=== PATIENT | female | born 1965 | race Caucasian/White ===

== ENCOUNTER 2017-07-28 13:45 | Outpatient (CLI) | payer OTHER ==
[2017-07-28 17:48] LABS: BILIRUBIN,URINE NEGATIVE (NEGATIVE); GLUCOSE, URINE (UA) NEGATIVE (NEGATIVE); KETONES,URINE (UA) NEGATIVE (NEGATIVE); LEUKOCYTE ESTERASE, URINE SMALL (NEGATIVE); NITRITE,URINE NEGATIVE (NEGATIVE); OCCULT BLOOD,URINE LARGE (NEGATIVE); PH,URINE 5.5 PH (5.0-7.5); PROTEIN,URINE 100 mg/dL (NEGATIVE); UROBILINOGEN,URINE 0.2 (NORMAL) E.U./dL (NORMAL)
[2017-07-28 17:49] LABS: CLARITY,URINE HAZY (CLEAR)
[2017-07-28 17:55] LABS: RBC,URINE TNTC /HPF (0-5); SQUAMOUS EPITHELIAL CELL,UR NONE SEEN (<= Few)
[2017-07-28 17:56] LABS: BACTERIA,URINE Few /HPF (None Seen)
== END 2017-07-28 13:46 | disposition home or self-care (01) ==
LOC: LAB.F 13:45
PROVIDERS: ATTEND Naturopath
DX: R30.9 Painful micturition, unspecified (principal)
CPT/HCPCS: 81001; 81003; 87077; 87086

== ENCOUNTER → 2018-02-21 | Outpatient (CLI) | payer OTHER ==
[2018-02-21 20:40] LABS: EOSINOPHILS % (AUTO) 0.9 %; HGB - HEMOGLOBIN 13.9 g/dL (12.0-16.0); LYMPHOCYTES # (AUTO) 1.3 10^3/uL (1.5-3.5); LYMPHOCYTES % (AUTO) 27.5 %; MEAN CORPUSCULAR HEMOGLOBIN 31.3 pg (27.0-31.0); MEAN CORPUSCULAR HGB CONC 34.1 g/dL (32.0-36.0); MEAN CORPUSCULAR VOLUME 91.7 fL (81.0-99.0); MEAN PLATELET VOLUME 8.9 fL (7.9-10.8); MONOCYTES # (AUTO) 0.3 10^3/uL (0.0-1.0); MONOCYTES % (AUTO) 5.7 %; NEUTROPHILS # (AUTO) 3.1 10^3/uL (1.5-6.6); NEUTROPHILS % (AUTO) 64.9 %; PLT - PLATELET COUNT 266 10^3/uL (130-450); RED BLOOD COUNT 4.44 10^6/uL (4.20-5.40); RED CELL DISTRIBUTION WIDTH 12.9 % (12.0-15.0); WHITE BLOOD COUNT 4.8 x10^3/uL (4.8-10.8)
[2018-02-21 21:21] LABS: FREE T4 (FREE THYROXINE) 0.86 ng/dL (0.58-1.64); THYROID STIMULATING HORMONE 3.05 uIU/mL (0.34-5.60)
[2018-02-21 21:23] LABS: HB2 TOTAL 14.5 g/dL; HEMOGLOBIN A1C 0.49 g/dL; HEMOGLOBIN A1C % 5.2 % (4.6-6.2)
[2018-02-21 21:24] LABS: FERRITIN 70.4 ng/mL (11.0-306.8)
[2018-02-21 21:32] LABS: % IRON SATURATION 38 % (20-50); ALBUMIN 4.1 g/dL (3.2-5.5); ALBUMIN/GLOBULIN RATIO 1.4 (1.0-2.2); ALKALINE PHOSPHATASE 61 IU/L (42-121); ALT ALANINE AMINOTRANSFERASE 25 IU/L (10-60); AST ASPARTATE AMINOTRANSFERASE 26 IU/L (10-42); BILIRUBIN,TOTAL 0.8 mg/dL (0.2-1.0); BUN - BLOOD UREA NITROGEN 19 mg/dL (6-20); CALCIUM 9.2 mg/dL (8.5-10.3); CARBON DIOXIDE - CO2 30 mmol/L (21-32); CHLORIDE 104 mmol/L (101-111); CHOL/HDL RATIO 2.2 (<4.4); CHOLESTEROL 158 mg/dL; CREATININE 0.6 mg/dL (0.4-1.0); CRP HIGH SENSITIVITY 1.3 mg/L; GFR - MDRD 104 (>89); GLUCOSE 86 mg/dL (70-100); HDL CHOLESTEROL 71 mg/dL; IRON 111 ug/dL (28-170); SODIUM 141 mmol/L (135-145); TOTAL IRON BINDING CAPACITY 294 ug/dL (250-450); TRANSFERRIN 210 mg/dL (192-382)
[2018-02-21 21:45] LABS: FOLLICLE STIMULATING HORMONE 112.21 mIU/mL
[2018-02-21 21:46] LABS: LUTEINIZING HORMONE 49.2 mIU/mL
[2018-02-21 21:52] LABS: LDL CHOLESTEROL,DIRECT 82 mg/dL; LDLD/HDL RATIO 1.2 (<4.4)
== END ==
LOC: LAB.F 08:00
PROVIDERS: ATTEND Naturopath
DX: R25.1 Tremor, unspecified (principal); Z13.820 Encounter for screening for osteoporosis; Z13.220 Encounter for screening for lipoid disorders; Z13.6 Encounter for screening for cardiovascular disorders; Z13.29 Encounter for screening for other suspected endocrine disorder; Z13.1 Encounter for screening for diabetes mellitus; Z13.228 Encounter for screening for other metabolic disorders
CPT/HCPCS: 36415; 80053; 80061; 82728; 83001; 83002; 83036; 83540; 83721; 84439; 84443; 84466; 84481; 85025; 86141

== ENCOUNTER 2018-03-08 10:39 | Outpatient (CLI) | payer OTHER ==
--- NOTE | 2018-03-12 08:32 | DEXA Report ---
Reason: SCREENING OSTEOPOROSIS Procedure Date: 03/08/2018 Accession Number: [id number] / [id number] Procedure: DEX - Dexa Spine and/or Hip CPT Code: FULL RESULT: EXAM: Dexa Spine and/or Hip DATE: 03/08/2018 11:10 AM CLINICAL HISTORY: SCREENING OSTEOPOROSIS TECHNIQUE: Dual energy x-ray absorptiometry (DXA) was performed on a [employer] System. Regions measured are the AP Spine, femoral neck, and if needed forearm. COMPARISON: None. In accordance with the International Society for Clinical Densitometry (ISCD) guidelines, data from previous exams may be reanalyzed using current recommendations and techniques. This is done to allow a more accurate basis for comparison with the current study. FINDINGS: The data for the lumbar spine is as follows: BMD (g/cm/cm) T-SCORE Z-SCORE REGION L1 0.895 -2.0 -1.1 L2 0.914 -2.4 -1.5 L3 1.012 -1.6 -0.7 L4 1.011 -1.6 -0.7 TOTAL 0.962 -1.8 -0.9 NOTE: All evaluable vertebrae are used for classification The data for the hip is as follows: BMD (g/cm/cm) T-SCORE Z-SCORE REGION Neck 0.832 -1.5 -0.4 TOTAL 0.802 -1.6 -0.9 NOTE: The femoral neck or total proximal femur, whichever is lowest, is used for classification. IMPRESSION: THE WHO CLASSIFICATION BASED ON THE INTERNATIONAL REFERENCE STANDARD IS OSTEOPENIA. THE FRACTURE RISK IS INCREASED. RECOMMENDATION: Patients with diagnosis of osteoporosis or osteopenia should have regular bone mineral density assessment. For those eligible for Medicare, routine testing is allowed once every 2 years. Testing frequency can be increased for patients who have rapidly progressing disease or for those who are receiving medical therapy to restore bone mass. COMMENT: World Health Organization (WHO) definitions for osteoporosis and osteopenia: NORMAL BMD: T-score at -1.0 or higher, fracture risk is low OSTEOPENIA BMD: T-score between -1.0 and -2.5, fracture risk is increased. OSTEOPOROSIS BMD: T-score at -2.5 or lower, fracture risk is high. National Osteoporosis Foundation recommends: 1. Obtain adequate dietary calcium (at least 1200 mg per day) and vitamin D (400-800 international units per day). 2. Participate, as appropriate, in regular weightbearing and muscle-strengthening exercise. 3. Avoid tobacco use and reduce alcohol and caffeine intake. 4. For more detailed information see the website at www.NOF.org.
== END 2018-03-08 10:40 | disposition home or self-care (01) ==
LOC: DI 10:39
PROVIDERS: ATTEND Naturopath
DX: Z13.820 Encounter for screening for osteoporosis (principal); M85.89 Other specified disorders of bone density and structure, multiple sites
CPT/HCPCS: 77080

== ENCOUNTER 2018-08-15 10:56 | Outpatient (CLI) | payer OTHER ==
[2018-08-16 09:51] LABS: PROGESTERONE 0.9 ng/mL
== END 2018-08-15 10:57 | disposition home or self-care (01) ==
LOC: LAB.F 10:56
PROVIDERS: ATTEND Naturopath
DX: N95.1 Menopausal and female climacteric states (principal)
CPT/HCPCS: 36415; 82627; 82670; 82672; 84144; 84403

== ENCOUNTER 2018-11-19 14:57 | Outpatient (CLI) | payer OTHER ==
[2018-11-20 07:36] LABS: PROGESTERONE 0.9 ng/mL
== END 2018-11-19 14:58 | disposition home or self-care (01) ==
LOC: LAB.F 14:57
PROVIDERS: ATTEND Naturopath
DX: N95.1 Menopausal and female climacteric states (principal)
CPT/HCPCS: 36415; 82627; 82670; 82672; 84144; 84403

== ENCOUNTER 2020-05-25 16:42 | Outpatient (CLI) | payer BC | END 2020-05-25 16:43 | disposition home or self-care (01) | LOC: COV 16:42 | PROVIDERS: ATTEND Family Medicine | DX: Z20.828 Contact with and (suspected) exposure to other viral communicable diseases (principal) ==

== ENCOUNTER 2020-12-30 15:30 | Outpatient (CLI) | payer BC ==
--- NOTE | 2020-12-30 16:00 | DEXA Report ---
PROCEDURE: Dexa Spine and/or Hip INDICATIONS: SCREENING FOR OSTEOPOROSIS TECHNIQUE: Dual energy x-ray absorptiometry (DXA) was performed on a [employer] System. Regions measur ed are the AP Spine, femoral neck, and if needed forearm. COMPARISON: 03/08/2018. FINDINGS: Lumbar Spine: Bone Mineral Density 0.925 g/cm/cm,T score -2.1, osteopenia Left Hip: Bone Mineral Density 0.774 g/cm/cm,T score -1.9, osteopenia Left Femoral Neck: Bone Mineral Density 0.762 g/cm/cm, T score -2.0, osteopenia (T score greater or equal to -1.0: NORMAL) (T score from -1.1 to -2.4: OSTEOPENIA) (T score less than or equal to -2.5 to: OSTEOPOROSIS) Impression: Osteopenia. Bone marrow density has decreased 3.5% in the interval since prior exam obtai issac 03/08/2018. Patients with diagnosis of osteoporosis or osteopenia should have regular bone mineral density assess ment. For those eligible for Medicare, routine testing is allowed once every 2 years. Testing frequ ency can be increased for patients who have rapidly progressing disease or for those who are receivin g medical therapy to restore bone mass. Reviewed by: Shital Contreras MD, PhD on 12/30/2020 3:59 PM PDT Approved by: Shital Contreras MD, PhD on 12/30/2020 3:59 PM PDT Station ID: [id number]
== END 2020-12-30 15:31 | disposition home or self-care (01) ==
LOC: DI 15:30
PROVIDERS: ATTEND Naturopath
DX: Z13.820 Encounter for screening for osteoporosis (principal); M85.88 Other specified disorders of bone density and structure, other site

== ENCOUNTER 2023-10-19 08:19 | Outpatient (CLI) | payer BC ==
--- NOTE | 2023-10-19 10:19 | DEXA Report ---
PROCEDURE: Dexa Spine and/or Hip INDICATIONS: OSTEOPENIA TECHNIQUE: Dual energy x-ray absorptiometry (DXA) was performed on a [employer] System. Regions measur ed are the AP Spine, femoral neck, and if needed forearm. COMPARISON: DEXA 12/30/2020, 03/08/2018 FINDINGS: Lumbar Spine: Bone Mineral Density: 0.882 g/cm/cm,T score: -2.5. Since the most recent prior study, there has been a statistically significant decrease in bone mineral density by 4.6 percent. Left Femoral Neck: Bone Mineral Density: 0.783 g/cm/cm, T score: -2.2. Left Hip: Bone Mineral Density: 0.730 g/cm/cm,T score: -2.2. Since the most recent prior study, there has been a statistically significant decrease in bone mineral density by 5.7 percent. (T score greater or equal to -1.0: NORMAL) (T score from -1.1 to -2.4: OSTEOPENIA) (T score less than or equal to -2.5 to: OSTEOPOROSIS) Impression: By WHO criteria, this patient has osteoporosis. Interval statistical decrease in bone mineral density of the lumbar spine. Interval statistical decre ase in bone mineral density of the hip. Patients with diagnosis of osteoporosis or osteopenia should have regular bone mineral density assess ment. For those eligible for Medicare, routine testing is allowed once every 2 years. Testing frequ ency can be increased for patients who have rapidly progressing disease or for those who are receivin g medical therapy to restore bone mass. Reviewed by: Rohith Acosta MD on 10/19/2023 10:17 AM PDT Approved by: Rohith Acosta MD on 10/19/2023 10:17 AM PDT Station ID: [id number]
== END 2023-10-19 08:20 | disposition home or self-care (01) ==
LOC: DI 08:19
PROVIDERS: ATTEND Naturopath
DX: M81.0 Age-related osteoporosis without current pathological fracture (principal)